=== PATIENT | female | born 1970 | race Caucasian/White ===

== ENCOUNTER 2016-09-30 12:37 | Emergency (ER) | payer BC ==
[2016-09-30 12:49] VITALS: BP 164/89; PULSE 99; RESP 18; TEMP 98.9
[2016-09-30] MEDS ORDERED: KETOROLAC 60 MG/2 ML VIAL IM STA (12:55)
[2016-09-30] MEDS ORDERED: ORPHENADRINE 30 MG/ML 2 ML VIAL IM STA (12:55)
--- NOTE | 2016-09-30 12:59 | ED ---
Back Pain HPI - General Chief Complaint: Back Pain/Injury Stated Complaint: Fall Time Seen by Provider: 09/30/16 12:41 Source: patient Limitations: no limitations - History of Present Illness Initial Comments: 36-year-old female patient presents to emergency department today with complaints of left lower back pain. Patient did experience a fall last Sunday, after a slip and fall on her deck. Patient states she fell and hit the step with her back. Patient states she has been having pain since then. Patient did go to [email or web address] Sunday for evaluation and was diagnosed with a muscle spasm and given Ultram and Flexeril for pain control. Patient states that the pain medications are not touching it. She states she has also been applying heat to the area without any relief. She states certain movements exacerbate the pain. Patient denies any loss of bowel or bladder control, she denies hitting her head or losing consciousness during that incident, she denies any numbness, tingling, or saddle anesthesia. She denies any headaches, dizziness, weakness, chest pain, shortness of breath, abdominal pain, nausea, vomiting, hematuria, dysuria, urgency, or urinary frequency. - Related Data Home Medications Medication Instructions Recorded Confirmed Cyclobenzaprine [Flexeril] 5 mg PO TID PRN 09/30/16 09/30/16 Ibuprofen [Motrin] 800 mg PO DAILY PRN 09/30/16 09/30/16 Naproxen Sodium [Aleve] 440 mg PO BID PRN 09/30/16 09/30/16 traMADol HCL [Ultram] 50 mg PO Q6HR PRN 09/30/16 09/30/16 Previous Rx's Medication Instructions Recorded Cyclobenzaprine [Flexeril] 10 mg PO TID PRN #15 tab 09/30/16 Hydrocodone/Acetaminophen [Unity 1 tab PO Q6HR PRN #20 tab 09/30/16 5-325] Allergies Allergy/AdvReac Type Severity Reaction Status Date / Time No Known Allergies Allergy Verified 09/30/16 13:12 Review of Systems ROS Statement: Those systems with pertinent positive or pertinent negative responses have been documented in the HPI. ROS Other: All systems not noted in ROS Statement are negative. Past Medical History Past Medical History: No Reported History History of Any Multi-Drug Resistant Organisms: None Reported Past Surgical History: No Surgical Hx Reported Past Psychological History: No Psychological Hx Reported Smoking Status: Never smoker Past Alcohol Use History: None Reported Past Drug Use History: None Reported General Exam Limitations: no limitations General appearance: alert, in no apparent distress Eye exam: Present: normal appearance, PERRL, EOMI. Absent: scleral icterus, conjunctival injection, periorbital swelling ENT exam: Present: normal exam, mucous membranes moist Neck exam: Present: normal inspection. Absent: tenderness, meningismus, lymphadenopathy Respiratory exam: Present: normal lung sounds bilaterally. Absent: respiratory distress, wheezes, rales, rhonchi, stridor Cardiovascular Exam: Present: regular rate, normal rhythm, normal heart sounds. Absent: systolic murmur, diastolic murmur, rubs, gallop, clicks GI/Abdominal exam: Present: soft, normal bowel sounds. Absent: distended, tenderness, guarding, rebound, rigid Back exam: Present: other (Patient reports positive straight leg test from her exam and medics pressed on Sunday. Refuses to have exam done at this time.). Absent: normal inspection (Ecchymosis noted to left flank, yellow and green in color), full ROM (Due to pain with movement), tenderness, CVA tenderness (R), CVA tenderness (L) Neurological exam: Present: alert, oriented X3, CN II-XII intact, other (Good strength bilateral lower extremities 5 out of 5) Psychiatric exam: Present: normal affect, normal mood Skin exam: Present: warm, dry, intact, normal color. Absent: rash Course Vital Signs 09/30/16 12:46 Temperature 98.9 F Pulse Rate 99 Respiratory 18 Rate Blood Pressure 164/89 O2 Sat by Pulse 96 Oximetry Medical Decision Making - Medical Decision Making 46-year-old female patient presents today for complaints of left lower back pain after experiencing a fall last Sunday. Patient states that the pain has persisted despite use of Flexeril and Ultram given at [facility]. Did x-ray the pelvis and left hip which showed no acute osseous abnormalities. Patient will be started on with referral to orthopedics, given a prescription for 10 mg Flexeril as well as Unity for further pain control. Did educate patient regarding use of heat to the area and gentle stretching exercises. Instructed the patient to return for any worsening, new, or concerning symptoms. Patient verbalizes understanding and agrees this plan. Disposition Clinical Impression: Muscle spasm Disposition: HOME SELF-CARE Condition: Stable Instructions: Acute Low Back Pain (ED), Muscle Spasm (ED), Lower Back Exercises (ED) Additional Instructions: Take pain medication and muscle relaxer as prescribed. Apply warm moist heat to the lower back 20 minutes at a time at least 4 times per day. Follow-up with primary care physician in one to 2 days if symptoms aren't improved. Follow-up with orthopedic doctor in 1-2 days if symptoms aren't improved. Return for any worsening, new, or concerning symptoms. Prescriptions: Cyclobenzaprine [Flexeril] 10 mg PO TID PRN #15 tab PRN Reason: Muscle Spasm Hydrocodone/Acetaminophen [Unity 5-325] 1 tab PO Q6HR PRN #20 tab PRN Reason: Pain Referrals: None,Stated [Primary Care Provider] - 1-2 days Jesús Myers MD [STAFF PHYSICIAN] - 1-2 days Time of Disposition: 13:36
--- NOTE | 2016-09-30 13:26 | XR ---
EXAMINATION TYPE: XR Hip LT and AP Pelvis DATE OF EXAM: 09/30/2016 1:09 PM COMPARISON: NONE HISTORY: Pain TECHNIQUE: A single AP view of the pelvis is obtained. Two views of the left hip are obtained. . Pelvic ring is intact. Proximal left femur and hip joint appear intact. Hip joint spaces are fairly normal. Sacroiliac joints are normal. IMPRESSION: Negative pelvis and left hip exam.
== END 2016-09-30 13:47 | disposition home or self-care (01) ==
LOC: EC 12:37
DX: M62.838 Other muscle spasm (principal); W01.0XXA Fall on same level from slipping, tripping and stumbling without subsequent striking against object, initial encounter
CPT/HCPCS: 73502; 99283; 96372 ×2; J2360; J1885

== ENCOUNTER → 2019-08-20 | Outpatient (CLI) | payer OTHER ==
--- NOTE | 2019-08-20 12:58 | XR ---
Right femur HISTORY: Contusion right thigh Frontal and lateral views of the right femur on 4 images Bone mineralization, joint spaces and alignment are maintained. IMPRESSION: No fracture or dislocation of the right femur.
== END | disposition home or self-care (01) ==
LOC: RADXRMAIN 12:34
PROVIDERS: ATTEND Emergency Medicine
DX: S70.11XA Contusion of right thigh, initial encounter (principal)